=== PATIENT | female | born 1985 | race American Indian/Alaskan Native ===

== ENCOUNTER 2022-01-02 05:54 | Observation (INO) | payer BC, OTHER ==
[2021-12-30 13:46] LABS: Basophils % (Auto) 0.4 % (0.0-1.8); Eosinophils # (Auto) 0.2 K/mm3 (0.0-0.4); Eosinophils % (Auto) 2.3 % (0.0-4.3); Hematocrit 42.6 % (30.3-42.9); Hemoglobin 13.4 gm/dl (10.1-14.3); Lymphocytes # (Auto) 2.9 K/mm3 (1.2-5.4); Lymphocytes % (Auto) 28.9 % (13.4-35.0); Mean Corpuscular HGB Conc 31 % (30-34); Mean Corpuscular Volume 92 fl (79-97); Monocytes # (Auto) 0.7 K/mm3 (0.0-0.8); Monocytes % (Auto) 6.8 % (0.0-7.3); Platelet Count 391 K/mm3 (140-440); Red Blood Count 4.66 M/mm3 (3.65-5.03); Red Cell Distribution Width 14.1 % (13.2-15.2)
[2022-01-02] MEDS ORDERED: ACETAMINOPHEN 500 MG TAB PO ONE (06:00)
[2022-01-02] MEDS ORDERED: MAGNESIUM OXIDE 400 MG TAB PO ONE (06:00)
[2022-01-02] MEDS ORDERED: CELECOXIB 200 MG CAP PO NR (06:00)
[2022-01-02] MEDS ORDERED: fentaNYL 100 MCG/2 ML INJ IV ONE (06:00)
[2022-01-02] MEDS ORDERED: LACTATED RINGERS 1,000 ML IV SCH (06:00)
[2022-01-02] MEDS ORDERED: ONDANSETRON 4 MG/2 ML INJ IV PRN ×2 (07:36→16:00)
[2022-01-02] MEDS ORDERED: HYDROmorphone 1 MG/1 ML INJ IV PRN ×2 (07:36)
[2022-01-02] MEDS: MIDAZOLAM 2 MG/2 ML INJ IV NR ×4 (07:40→09:24)
[2022-01-02] MEDS ORDERED: dexAMETHasone 4 MG/ML VIAL ONE (08:33)
[2022-01-02] MEDS ORDERED: BUPIVACAINE/PF (0.25%) 2.5 MG/ML 30 ML VIAL INFILTRATI ONE (08:33)
[2022-01-02] MEDS ORDERED: MIDAZOLAM 2 MG/2 ML INJ IV ONE ×3 (08:49→09:24)
[2022-01-02] MEDS ORDERED: fentaNYL 100 MCG/2 ML INJ ONE (09:29)
[2022-01-02] MEDS ORDERED: propofoL 200 MG/20 ML VIAL IV ONE (09:29)
[2022-01-02] MEDS ORDERED: ONDANSETRON 4 MG/2 ML INJ ONE (09:30)
[2022-01-02] MEDS ORDERED: SUCCINYLCHOLINE CHLORIDE 200 MG/10 ML INJ MDV ONE (09:30)
[2022-01-02] MEDS ORDERED: LIDOCAINE PF 100 MG/5 ML (CARDIAC SYRINGE) IV ONE (09:30)
[2022-01-02] MEDS ORDERED: dexAMETHasone 20 MG/5 ML VIAL ONE (09:30)
[2022-01-02] MEDS ORDERED: ROCURONIUM 50 MG/5 ML INJ IV ONE ×3 (09:30→12:35)
[2022-01-02] MEDS ORDERED: HYDROmorphone 1 MG/1 ML INJ ONE (09:40)
[2022-01-02] MEDS ORDERED: ceFAZolin/Water 2 GM/20 ML 2 GM/20 ML SYRINGE IV NR (10:00)
[2022-01-02] MEDS ORDERED: ePHEDrine SULFATE 50 MG/1 ML INJ ONE (10:18)
[2022-01-02] MEDS ORDERED: CITRIC ACID-SOD CITRATE 500 ML IV ONE (10:21)
[2022-01-02] MEDS ORDERED: SODIUM CHLORIDE 0.9% 250ML 250 ML ONE (11:28)
[2022-01-02] MEDS ORDERED: VASOPRESSIN 20 UNIT/1 ML INJ ONE (11:29)
[2022-01-02] MEDS ORDERED: VASOPRESSIN 20 UNIT/1 ML INJ IM ONE (11:35)
[2022-01-02] MEDS ORDERED: SODIUM CHLORIDE 0.9% 250 ML IVPB IV ONE (11:36)
[2022-01-02] MEDS ORDERED: SODIUM CHLORIDE 0.9% IRR 1,500 ML BOTTLE IR ONE (11:36)
[2022-01-02] MEDS ORDERED: SODIUM CHLORIDE 0.9% IRRIG SOLN 2000 ML IR ONE (11:36)
[2022-01-02] MEDS ORDERED: IBUPROFEN 800 MG TAB PO PRN (16:00)
[2022-01-02] MEDS ORDERED: D5W/LACTATED RINGERS 1,000 ML IV SCH (16:00)
[2022-01-02] MEDS ORDERED: ACETAMINOPHEN 325 MG TAB PO PRN (16:00)
[2022-01-02] MEDS ORDERED: MAGNESIUM HYDROXIDE (MOM) ORAL LIQD UDC PO PRN (16:00)
[2022-01-02] MEDS: MORPHINE 4 MG/1 ML INJ IV PRN ×2 (18:08→21:58)
[2022-01-02] MEDS: DOCUSATE SODIUM 100 MG CAP PO SCH (22:02)
[2022-01-03] MEDS: MORPHINE 4 MG/1 ML INJ IV PRN (03:18)
[2022-01-03 07:49] LABS: Hematocrit 36.2 % (30.3-42.9); Hemoglobin 11.9 gm/dl (10.1-14.3)
[2022-01-03] MEDS: HYDROcodone/ACETAMINOPHEN 5-325 MG TAB PO PRN ×2 (08:57→15:25)
[2022-01-03] MEDS: DOCUSATE SODIUM 100 MG CAP PO SCH (08:58)
[2022-01-03] MEDS ORDERED: SIMETHICONE 80 MG CHEW TAB PO PRN (10:20)
[2022-01-03 15:45] VITALS: BP 122/71
== END 2022-01-03 17:28 | disposition home or self-care (01) ==
LOC: OR 05:54 → EDSTATUS 08:00 → OB 13:21
PROVIDERS: ADMIT Obstetrics & Gynecology; ATTEND Obstetrics & Gynecology
DX: D25.1 Intramural leiomyoma of uterus (principal); Z20.822 Contact with and (suspected) exposure to COVID-19; D25.2 Subserosal leiomyoma of uterus; D50.8 Other iron deficiency anemias; N92.0 Excessive and frequent menstruation with regular cycle; Z79.899 Other long term (current) drug therapy; Z98.890 Other specified postprocedural states
CPT/HCPCS: 36415; 58573; 64488; 84703; 85014; 85018; 85025; 86850; 86900; 86901; 88307; 96374; 96375; 96376; C1782; G0378; J0330; J0690; J1100; J1170; J2001; J2250; J2270; J2405; J2704; J3010; J3490; J7050; J7120; J7121; Q4140; U0003; 64450; J7060